=== PATIENT | female | born 1970 | race Caucasian/White ===

== ENCOUNTER 2018-09-04 00:32 | Inpatient (IN) | payer OTHER ==
[2018-09-04] MEDS ORDERED: Dexamethasone 10 MG/ML VIAL ONE (01:10)
[2018-09-04 01:37] LABS: ALT (SGPT) 50 U/L (8-55); AST (SGOT) 32 U/L (5-34); Albumin 4.3 g/dL (3.5-5.0); Alkaline Phosphatase 61 U/L (40-150); Anion Gap 16 mmol/L (10-20); BUN (Urea Nitrogen) 12 mg/dL (7.0-18.7); Bilirubin, Total 0.5 mg/dL (0.2-1.2); Calc. Creatinine Clearance 0 mL/min (70-130); Calcium 9.2 mg/dL (7.8-10.44); Carbon Dioxide 19 mmol/L (22-29); Chloride 111 mmol/L (98-107); Estimated GFR-MDRD Greater than 90; Globulin 2.3 g/dL (2.4-3.5); Glucose 94 mg/dL (70-105); Potassium 4.4 mmol/L (3.5-5.1); Protein, Total 6.6 g/dL (6.0-8.3); Sodium 142 mmol/L (136-145)
[2018-09-04 01:46] LABS: PTT 29.4 SEC (22.9-36.1); Prothrombin Time 13.4 SEC (12.0-14.7)
[2018-09-04 01:55] LABS: Band 4 % (5-11); Eosinophils 2 % (0-10); Hemoglobin 15.3 g/dL (12.0-16.0); Lymphocytes 19 % (21-51); MDiff Complete? YES; Mean Corpuscular HGB CONC 32.2 g/dL (32.0-36.0); Mean Corpuscular Hemoglobin 28.5 pg (27.0-31.0); Mean Corpuscular Volume 88.6 fL (78.0-98.0); Mean Platelet Volume 7.5 fL (7.4-10.4); Monocytes 4 % (0-10); Neutrophil 71 % (42-75); Platelet Clumps SLIGHT; Platelet Count 156 thou/uL (130-400); Platelet Morphology Comment Appears Adequate; RBC Distribution Width 12.5 % (11.5-14.5); Red Blood Cell (RBC) Count 5.38 mill/uL (4.20-5.40); White Blood Cell (WBC) Count 7.5 thou/uL (4.8-10.8)
--- NOTE | 2018-09-04 02:12 | PDOC.FPRHP ---
- History of Present Illness Chief Complaint: headache History of Present Illness: This is a 48 year old female who presents as transfer from [facility] ED ( [place], [place]) with a 7 day history of severe headache, not resolved with OTC medications. She states the headache started last and has gotten progressively worse. Constant pain. Described pain as dull and throbbing located at the back of her head. She states when she bends her head forward the pain radiates to the front of her head. Patient endorses associated N/V that began on Friday of this week. She has thrown up once today. Headache, dizziness , N/V worsened with positional changes, particularly when going from lying to seated position. Denies any changes in her gait, no vision changes. 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 She received chemotherapy, radiation, and surgery to left breast. Patient denies associated fever, chills, weakness, abdominal pain, stool changes, cough, or congestion. Patient sees Dr. Hines for her breast cancer in the [place]- last saw him about [address] brain at outside facility showed two lesions, one which was appx 4x4 cm located in cerebellar region with associated edema and mild hydrocephalus. Another lesion noted in right temporal lesion which is appx 1 cm in size. ED Course: Decadron - Allergies/Adverse Reactions Allergies Allergy/AdvReac Type Severity Reaction Status Date / Time No Known Drug Allergies Allergy Unverified 09/04/18 02:31 - History PMH: stage IV breast cancer s/p chemo and radiation PSH: hysterectomy, mastectomy of L breast, tonsillectomy FH: Social: drinks socially 2x a month, denies drug use. Denies tobacco use. Lives at home w/ family. 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 - Review of Systems General: reports: weight/appetite/sleep changes, fatigue, other (headache, back of head). denies: fever/chills Eyes: denies: eye pain, vision changes Respiratory: denies: cough, congestion, shortness of breath Cardiovascular: denies: chest pain, palpitation, edema Gastrointestinal: reports: nausea, vomiting. denies: diarrhea, constipation, abdominal pain Genitourinary: denies: dysuria Skin: denies: rashes, lesions Neurological: reports: other (dizziness with standing). denies: weakness - Vital signs BP: 151/98, Pulse: 87, Resp: 17, Temp: 97.7 (Oral), Pain: 0, O2 sat: 100 on Room Air, Time: 09/04/2018 00:33. Weight: 86kg BP: 150/99, Pulse: 80, Resp: 17, O2 sat: 98 on Room Air, Time: 09/04/2018 02:00. - Physical Exam Constitutional: NAD, awake, alert and oriented, well developed HEENT: normocephalic and atraumatic, PERRLA, EOMI, grossly normal vision, grossly normal hearing, MMM Neck: supple, FROM Heart: RRR, normal S1/S2, no murmurs/rubs/gallops Lungs: CTAB, no respiratory distress, good air movement, no rales/rhonchi, no wheezing, no retractions Abdomen: soft, non-tender, bowel sounds present, no masses/distention Musculoskeletal: normal structure, normal tone, ROM grossly normal Neurological: CN II-XII intact, normal sensation -Neurological: left sided dysmetria, heel to horn positive on left Skin: no rash/lesions, good turgor, capillary refill <2 seconds Psychiatric: normal mood and affect FMR H&P: Results - Labs Result Diagrams: 09/04/18 01:09 09/04/18 01:09 Lab results: WBC 7.5 thou/uL (4.8-10.8) 09/04/18 01:09 Hgb 15.3 g/dL (12.0-16.0) 09/04/18 01:09 Hct 47.7 % (36.0-47.0) H 09/04/18 01:09 MCV 88.6 fL (78.0-98.0) 09/04/18 01:09 Plt Count 156 thou/uL (130-400) 09/04/18 01:09 Band Neuts % (Manual) 4 % (5-11) L 09/04/18 01:09 Sodium 142 mmol/L (136-145) 09/04/18 01:09 Potassium 4.4 mmol/L (3.5-5.1) 09/04/18 01:09 Chloride 111 mmol/L (98-107) H 09/04/18 01:09 Carbon Dioxide 19 mmol/L (22-29) L 09/04/18 01:09 BUN 12 mg/dL (7.0-18.7) 09/04/18 01:09 Creatinine 0.65 mg/dL (0.6-1.1) 09/04/18 01:09 Glucose 94 mg/dL (70-105) 09/04/18 01:09 Calcium 9.2 mg/dL (7.8-10.44) 09/04/18 01:09 Total Bilirubin 0.5 mg/dL (0.2-1.2) 09/04/18 01:09 AST 32 U/L (5-34) 09/04/18 01:09 ALT 50 U/L (8-55) 09/04/18 01:09 Alkaline Phosphatase 61 U/L (40-150) 09/04/18 01:09 Serum Total Protein 6.6 g/dL (6.0-8.3) 09/04/18 01:09 Albumin 4.3 g/dL (3.5-5.0) 09/04/18 01:09 FMR H&P: A/P - Problem List (1) Breast cancer Current Visit: Yes Status: Acute (2) Brain metastasis Current Visit: Yes Status: Acute Code(s): C79.31 - SECONDARY MALIGNANT NEOPLASM OF BRAIN (3) Hypertension Current Visit: Yes Status: Acute Code(s): I10 - ESSENTIAL (PRIMARY) HYPERTENSION - Plan Stage IV breast cancer w/ mets - CT brain at outside facility showed two lesions, one which was appx 4x4 cm located in cerebellar region with associated edema and mild hydrocephalus. Another lesion noted in right temporal lesion which is appx 1 cm in size. - s/p decadron - Neurosurg consulted from the ER, appreciate recs, no intervention at this time - Plan for MRI on 09/04, pt NPO for any possible intervention - Tylenol/motrin PRN for headache - Consider onc consult in AM HTN - hydralazine/labetalol PRN - Will continue to monitor VS Dispo: admit to medical/inpatient, > 2 midnights Diet: NPO DVT ppx: SCDs PCP: Farhan Code: DNAR FMR H&P: Upper Level - Pertinent history 48 yo WF PMH Breast cancer s/p mastectomy with lymph node dissection, chemo, and radiation. Presents with 1 wk hx of worsening headache that began last . Reports worsening dizziness and poor coordination during this time. Reports dizziness is associated with nausea and vomiting. States symptoms improve when lying supine. Seen at outside ER in [place] where CT showed left cerebellar mass. Sent to [facility] for further evaluation and treatment. PCP is Farhan. ER: Labs, CT-Brain, decadron, NS 1L, Neurosurgery consult. - Pertinent findings Vitals: Unremarkable GEN: NAD CV: RRR Pulm: CTA-B Neuro: CN2-12 intact, normal upper and lower extremity strength and sensation. Cerebellar testing shows dysmetria on the left worse in upper extremity. Labs: unremarkable CT-Brain: Reviewed by me from outside facility. Large lesion in left cerebellum. no mass effect noted. - Plan Date/Time: 09/04/180 I, Garret Tapia MD, have evaluated this patient and agree with findings/plan as outlined by digital intern resident. Pertinent changes/additions are listed here. 1. Cerebellar Mass: Neurosurgery consulted. S/P decadron. MRI scheduled in the morning. F/U recs. PRN antiemetics and analgesics provided. Unsure if primary tumor vs metastatic lesion at this time. 2. Hx Breast CA Diet: NPO pending MRI results PPx: SCD until evaluated MRI complete and further neurosurgery recs. Recommend lovenox if no surgery to be performed. CODE: DNAR, discussed with patient and her . Dispo: Obs, Medical, <2 midnight. Addendum - Attending - Attending Attestation Date/Time: 09/04/18 1083 I personally evaluated the patient and discussed the management with Dr. Esposito/ [place]. I agree with the History, Examination, Assessment and Plan documented above with any addition or exceptions noted below. Patient with history of stage IV inflammatory breast ca here with headache and history consistent with intracranial mass. CT imaging confirmed this and she was transferred here. Will provide pain control, anti-emetics as needed, and continue Decadron. NSGY to see. MRI pending. Further inpatient mgmt per NSGY recs. Has outpatient Onc, will consult our team here if needed.
[2018-09-04] MEDS ORDERED: Acetaminophen 325 MG TAB PO PRN (02:19)
[2018-09-04] MEDS ORDERED: Ondansetron ODT 4 MG TAB PO PRN (02:19)
[2018-09-04] MEDS ORDERED: hydrALAZINE 20 MG/ML VIAL SLOW IVP PRN (02:26)
[2018-09-04] MEDS ORDERED: Sodium Chloride 0.9% (PF) 10 ML VIAL FS PRN (03:19)
[2018-09-04] MEDS: Lactated Ringer's 1,000 ML IV SCH ×2 (04:07→15:22)
--- NOTE | 2018-09-04 07:11 | PRG ---
DATE OF SERVICE: 09/04/2018 I personally interviewed and examined the patient, agreed with documentation of Krupa Stern PA-C, dated 09/04/2018. Briefly, Lily Irvin is a 48-year-old woman, who is 11 months out from breast cancer surgery with lymph node dissection. Three of the lymph nodes were obtained and they were negative. She is on five weeks of adjuvant therapy, which was stopped for side effect reasons. She has been healthy and free of known disease since. The tumor was felt to be inflammatory, but with triple-negative markers. The patient comes in with a 1-week history of headache, nausea, and vomiting. CT examination at an outside facility showed a hypodense lesion in the left cerebellar hemisphere causing mass effect on the 4th ventricle, but not a significant amount of hydrocephalus yet. MRI scans are pending. Examination is well documented and involved some dysmetria, especially on the left. I had a long discussion with Ms. Irvin and her in the room this morning. We are awaiting MRI results. If this appears to be a tumor, then I do not believe it is amenable to radiation or stereotactic radiosurgery due to the localized mass effect. In fact, I think it should be removed quickly. They seemed a little hesitant to remove it today, but we will talk again after the MRI scan if today is not an option for them and we will keep her on 4 q.i.d. of Decadron with a proton-pump inhibitor and potentially personnel scheduler her for early next week. I would not wait more than a week or so to remove this tumor. Job ID: [id number] MTDD
--- NOTE | 2018-09-04 08:19 | CON ---
DATE OF CONSULTATION: HISTORY OF PRESENT ILLNESS: Ms. Irvin is a 48-year-old female, who has a history of inflammatory breast cancer, she had mastectomy and has finished chemotherapy in May of this year. She went to the emergency department this evening in [place], [place] for 5 days of headache/occipital pain, worse positionally and with any type of intrathecal pressure. She has had 2 days of nausea and vomiting, otherwise, she was neurologically intact at the emergency department in [place]. A CT of her head was done showing a 4 cm cystic lesion and was transferred for MRI. Neurosurgery has been consulted for evaluation of this mass. The patient is neurologically intact. She is moving all 4 extremities well. She has good strength bilaterally. No changes in sensation. No hearing or visual changes. No fevers or chills. She has been unable to eat or drink much since Friday, presents here with nausea and vomiting. She has mild dysmetria on the left compared to the right with [id number] test. Memory, attention is normal. REVIEW OF SYSTEMS: A 10-point review of systems has been completed and is negative other than stated in the above HPI. PAST MEDICAL HISTORY: Breast cancer, inflammatory; treated with chemotherapy and radiation and surgery. PAST SURGICAL HISTORY: Hysterectomy, mastectomy, and tonsillectomy. SOCIAL HISTORY: The patient drinks socially twice a month. Denies drug use. She has no smoking history. Lives at home with her family. 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 ALLERGIES: NO KNOWN DRUG ALLERGIES. HOME MEDICATIONS: 1. Promethazine. 2. Diazepam. 3. Hydrocodone/acetaminophen. PHYSICAL EXAMINATION: VITAL SIGNS: Blood pressure 151/98, heart rate 87, respirations 17, temperature 97.7, O2 saturation 100% on room air. CONSTITUTIONAL: The patient is alert and oriented. She is afebrile and nontoxic appearing. HEENT: Head is normocephalic, atraumatic. Pupils are equal, round, and reactive to light. Extraocular movements are intact. Hearing is intact. Moist mucous membranes. Tenderness in the posterior occipital region. NECK: Range of motion is normal. CARDIAC: Regular rate and rhythm. RESPIRATIONS: Normal work of breathing on room air. EXTREMITIES: Upper and lower extremities have normal strength and sensation, 5/5 bilateral in the deltoids, biceps, triceps, foam rubber fabricator strength, hip flexion, hip extension, dorsiflexion, and plantar flexion. NEUROLOGIC: The patient is alert and oriented x3. Speech is spontaneous and fluent. Normal fund of knowledge. Short-term and long-term memory intact. There are no focal motor or sensory deficits noted. Cranial nerves 2 through 12 are intact. There is no pronator drift. Mild dysmetria left compared to right. IMAGING STUDIES: [facility] head done at [facility] show an approximately 4 cm cystic lesion within the left cerebellar hemisphere with a small mural nodule at the posterior aspect of this lesion. There is mild adjacent edema, prominent effacement of the adjacent 4th ventricle, early/mild hydrocephalus is difficult to exclude. Appearance is nonspecific and differential is considered including hemangioblastoma, pilocytic astrocytoma, and metastatic disease. MRI with and without contrast is recommended. There is a possible additional 1 cm lesion in her right posterior temporal lobe. ASSESSMENT AND PLAN: Ms. Irvin is a 48-year-old female with history of inflammatory breast cancer, recently treated with chemotherapy. There is a possibility of this being a metastatic disease that has metastasized to her brain. We will recommend Decadron while she is in the emergency department. Medicine is going to admit and make her comfortable and we will get the MRI with and without contrast of her brain this morning. We will review imaging and create a further plan at that point. Job ID: [id number] MTDD
--- NOTE | 2018-09-04 08:52 | MRI ---
MRI brain with and without IV contrast. Multiplanar and multisequential imaging of brain obtained according to protocol. INDICATIONS: Follow-up brain mass seen on CT. COMPARISON: Comparison made to CT performed 09/03/2018 from outside institution. FINDINGS: Again noted is a predominantly cystic appearing mass with peripheral enhancement in the left cerebell um measuring 4 cm diameter. This has surrounding vasogenic edema produces mass effect on the fourth ventricle with mild midline shift of the fourth ventricle. Lateral ventricles and third ventricle are upper normal size suggesting early obstructive hydrocephalus. There is a mural nodule along the posterior border of this lesion as described on yesterday's CT. A second ring-enhancing lesion is seen on MRI. There is a septated ring-enhancing mass posterior righ t temporal lobe adjacent to the dural surface measuring 1.2 cm. No other lesions identified. Intracranial internal carotid arteries, proximal cerebral arteries, and basilar arteries show normal flow voids. Dural venous sinuses appear patent. Visualized paranasal sinuses and mastoids appear clear. Orbits appear unremarkable. Bony calvarium and soft tissues of the scalp appear unremarkable. IMPRESSION: There are 2 ring-enhancing lesions seen on MRI. The largest in the left cerebellum is producing mass effect with compression of the fourth ventricle as described above. The presence of 2 lesions in a patient with prior history of stage IV breast cancer highly favors met astatic disease.
[2018-09-04] MEDS ORDERED: Enoxaparin Sodium 40 MG/0.4 ML SYRINGE SC SCH (09:00)
[2018-09-04] MEDS ORDERED: Pantoprazole 40 MG VIAL IVP SCH (09:00)
[2018-09-04] MEDS: Dexamethasone 4 MG TAB PO SCH ×3 (11:12→18:32)
[2018-09-04] MEDS: Ondansetron PF 4 MG/2 ML Vial IVP PRN ×2 (11:15→18:03)
[2018-09-04] MEDS ORDERED: Gadobenate Dimeglumine 529 MG/1 ML (20ML VIAL) ONE (11:55)
[2018-09-04] MEDS ORDERED: Promethazine 25 MG TAB PO PRN (12:00)
[2018-09-04] MEDS ORDERED: Diazepam 2 MG TAB PO SCH (12:00)
[2018-09-04] MEDS ORDERED: HYDROcodone/Acetaminophen 10/325 mg Tablet PO PRN (12:00)
[2018-09-04] MEDS ORDERED: Diazepam 2 MG TAB PO PRN (12:17)
[2018-09-04] MEDS ORDERED: Promethazine HCl 25 MG/ML VIAL IM PRN (15:03)
[2018-09-04] MEDS ORDERED: Ondansetron PF 4 MG/2 ML Vial ONE (16:51)
[2018-09-04] MEDS ORDERED: ePHEDrine 50 MG/ML VIAL ONE (16:51)
[2018-09-04] MEDS ORDERED: Dexamethasone 20 MG/5 ML VIAL ONE (16:51)
[2018-09-04] MEDS ORDERED: Rocuronium Bromide 10 MG/ML (10ML VIAL) ONE (16:51)
[2018-09-04] MEDS ORDERED: PHENYLEPHRINE-NS 100 MCG/ML 10 ML SYRINGE ONE (16:51)
[2018-09-04] MEDS ORDERED: Vecuronium 10 MG VIAL ONE (16:51)
[2018-09-04] MEDS ORDERED: PROPOFOL 200 MG/20 ML VIAL ONE (16:51)
[2018-09-04] MEDS ORDERED: Lidocaine 1% PF 5 ML VIAL ONE (16:51)
[2018-09-04] MEDS ORDERED: Midazolam HCl 2 mg/2 ml Vial ONE (19:00)
[2018-09-04] MEDS ORDERED: Lidocaine 0.5%/Epinephrine 1:200,000 50 ml Vial ONE (19:09)
[2018-09-04] MEDS ORDERED: Thrombin 5000 UNITS/5 ML VIAL ONE ×2 (19:09→23:45)
[2018-09-04] MEDS ORDERED: Bacitracin Zinc Ointment 30 gm TUBE ONE (19:09)
[2018-09-04] MEDS ORDERED: Sodium Chloride 0.9% 10 ML ONE ×2 (19:10→22:17)
[2018-09-04] MEDS ORDERED: Fentanyl 100 MCG/2 ML VIAL ONE ×2 (19:22→20:08)
[2018-09-04] MEDS ORDERED: Mannitol 12.5 GM/50 ML ONE (19:30)
[2018-09-04] MEDS ORDERED: Phenylephrine HCL 10 MG/ML VIAL ONE (20:27)
[2018-09-04] MEDS ORDERED: Sodium Chloride 0.9% 20 ML ONE (22:30)
[2018-09-05] MEDS ORDERED: Vecuronium 10 MG VIAL ONE (00:33)
[2018-09-05] MEDS ORDERED: SUGAMMADEX SODIUM 200 MG/2 ML VIAL ONE (01:58)
[2018-09-05] MEDS ORDERED: SUGAMMADEX SODIUM 500 MG/5 ML VIAL ONE (01:58)
[2018-09-05] MEDS ORDERED: HYDROcodone/Acetaminophen 10/325 mg Tablet PO PRN ×2 (02:15)
[2018-09-05] MEDS ORDERED: diphenhydrAMINE 50 MG CAP PO PRN (02:17)
[2018-09-05] MEDS ORDERED: diphenhydrAMINE 50 MG/ML VIAL IVP PRN (02:17)
[2018-09-05] MEDS ORDERED: Docusate 100 MG CAP PO PRN (02:17)
[2018-09-05] MEDS ORDERED: Mag-Al 1200 mg/1200 mg/30 ML UDCUP PO PRN (02:17)
[2018-09-05] MEDS ORDERED: Promethazine HCl 25 MG/ML VIAL SLOW IVP PRN (02:34)
[2018-09-05] MEDS ORDERED: Promethazine HCl 25 MG/ML VIAL IM PRN (02:34)
[2018-09-05] MEDS ORDERED: Ondansetron HCl/PF 4 MG/2 ML Vial IVP PRN (02:34)
[2018-09-05] MEDS ORDERED: Fentanyl 100 MCG/2 ML VIAL ONE (03:06)
[2018-09-05] MEDS: Lactated Ringer's 1,000 ML IV SCH (04:27)
[2018-09-05] MEDS: Dexamethasone 4 MG TAB PO SCH ×2 (04:27→07:43)
[2018-09-05] MEDS: Sodium Chloride 0.9% 1,000 ML IV SCH ×2 (04:28→17:33)
[2018-09-05] MEDS: CEFAZOLIN 2 GM in Premix Bag 1 BAG IVPB SCH ×3 (04:30→18:23)
[2018-09-05] MEDS: Labetalol HCl 100 MG/20 ML VIAL SLOW IVP PRN ×2 (04:36→11:36)
[2018-09-05] MEDS: Morphine 4 MG/ML VIAL SLOW IVP PRN ×5 (04:39→22:01)
[2018-09-05] MEDS: hydrALAZINE 20 MG/ML VIAL SLOW IVP PRN ×2 (05:50→10:38)
--- NOTE | 2018-09-05 06:16 | PDOC.FM ---
- Subjective Subjective: Mrs. Irvin is sitting up in bed awake. Moaning and complains of head pain. Reports it feels like her eyes are "stuck together". Oriented to person and time. Continues to say "what are you doing to me". - Objective Vital Signs & Weight: Vital Signs (12 hours) Pulse BP 09/05/18 05:50 86 165/84 H 09/05/18 04:36 86 163/84 H Weight Weight 88.269 kg Most Recent Monitor Data Heart Rate from ECG 104 NIBP 118/75 NIBP BP-Mean 89 Respiration from ECG 16 SpO2 100 Result Diagrams: 09/05/18 06:35 09/05/18 06:35 Phys Exam - Physical Examination moaning of pain, responds to questions appropriately. Says random phrases at times. incision clean and dry Respiratory: no wheezing, no rhonchi, clear to auscultation bilateral Cardiovascular: RRR (sinus tachy), no significant murmur Gastrointestinal: soft, non-tender, no distention, positive bowel sounds Musculoskeletal: no edema Deviation from normal: A&Ox2 Skin: normal turgor Dx/Plan (1) Brain metastasis Code(s): C79.31 - SECONDARY MALIGNANT NEOPLASM OF BRAIN Status: Acute (2) Breast cancer Status: Acute (3) Hypertension Code(s): I10 - ESSENTIAL (PRIMARY) HYPERTENSION Status: Acute - Plan Plan: Stage IV breast cancer w/ brain metastasis, POD #1 s/p resection - CT brain at outside facility showed two lesions, one which was appx 4x4 cm located in cerebellar region with associated edema and mild hydrocephalus. Another lesion noted in right temporal lesion which is appx 1 cm in size. - MRI here with 2 ring enhancing lesions. 4 cm L cerebellar w/mass effect. R temporal lesion 1.2 cm - op report from surgery overnight pending - Neurosurgery consulted and managing post op course, appreciate recommendations HTN - hydralazine/labetalol PRN - Will continue to monitor VS Diet: Regular DVT ppx: SCDs PCP: Farhan Code: DNAR Addendum - Attending - Attending Attestation Date/Time: 09/05/18 6974 I personally evaluated the patient and discussed the management with Dr. Calderon. I agree with the History, Examination, Assessment and Plan documented above with any addition or exceptions noted below. Patient had extensive operation overnight to debulk the cerebellar brain tumor with NSGY. She is currently in the CCU. Vitals stable. She complains of pain but is overall alert and oriented. Further mgmt per NSGY recs. Pathology pending. Onc consult on Friday as they would be unlikely to offer much until path result obtained. Monitor neuro function closely.
[2018-09-05] MEDS ORDERED: Bacteriostatic Normal Saline 30 ML VIAL ONE (06:32)
[2018-09-05 06:48] LABS: #Lymphocytes 0.8 thou/uL (1.20-3.40); #Monocytes 0.9 thou/uL (0.11-0.59); #Neutrophils 9.2 thou/uL (1.40-6.50); %Basophils 0.1 % (0.0-1.0); %Eosinophils 0.1 % (0.0-10.0); %Lymphocytes 7.1 % (21.0-51.0); %Monocytes 8.5 % (0.0-10.0); %Neutrophils 84.2 % (42.0-75.0); Hemoglobin 14.1 g/dL (12.0-16.0); Mean Corpuscular HGB CONC 34.3 g/dL (32.0-36.0); Mean Corpuscular Hemoglobin 29.3 pg (27.0-31.0); Mean Corpuscular Volume 85.5 fL (78.0-98.0); Mean Platelet Volume 6.2 fL (7.4-10.4); Platelet Count 259 thou/uL (130-400); RBC Distribution Width 12.5 % (11.5-14.5); Red Blood Cell (RBC) Count 4.82 mill/uL (4.20-5.40)
[2018-09-05 07:10] LABS: Anion Gap 14 mmol/L (10-20); BUN (Urea Nitrogen) 12 mg/dL (7.0-18.7); Calc. Creatinine Clearance 135 mL/min (70-130); Carbon Dioxide 20 mmol/L (22-29); Chloride 113 mmol/L (98-107); Estimated GFR-MDRD 88; Glucose 135 mg/dL (70-105); Potassium 3.8 mmol/L (3.5-5.1); Sodium 143 mmol/L (136-145)
[2018-09-05] MEDS: Acetaminophen 1,000 MG in Premix Bag 1 BAG IVPB SCH ×3 (07:32→19:25)
[2018-09-05] MEDS: Dexamethasone 4 mg/ml Vial SLOW IVP SCH ×3 (07:32→19:25)
--- NOTE | 2018-09-05 07:56 | RAD ---
CHEST 1 VIEW: Date: 09/05/18 INDICATION: Line placement. IMPRESSION: There is a left subclavian central venous catheter projecting in the region of the right atrium. Ther e are low lung volumes. Heart size and pulmonary vasculature within normal limits. No pleural effusio n or pneumothorax evident. POS: BH
[2018-09-05] MEDS: Letrozole 2.5 MG TAB PO SCH ×2 (10:41→10:42)
[2018-09-05] MEDS ORDERED: Labetalol HCl 100 MG/20 ML VIAL SLOW IVP PRN (13:00)
[2018-09-05] MEDS: Ondansetron PF 4 MG/2 ML Vial IVP PRN (16:29)
--- NOTE | 2018-09-05 21:23 | PRG ---
DATE OF SERVICE: 09/05/2018 I met with Ms. Irvin in the ICU room. She complains of expected postsurgical headache. She is neurologically intact. She has a ventriculostomy drain that is patent and draining low amounts of clear spinal fluid. We will continue to maintain her presence in the ICU over the course of the weekend and re-evaluate transfer to the floor once we feel comfortable removing the ventriculostomy. Job ID: [id number]
[2018-09-06] MEDS: Acetaminophen 1,000 MG in Premix Bag 1 BAG IVPB SCH (02:16)
[2018-09-06] MEDS: Dexamethasone 4 mg/ml Vial SLOW IVP SCH ×4 (02:16→20:01)
[2018-09-06] MEDS: CEFAZOLIN 2 GM in Premix Bag 1 BAG IVPB SCH ×3 (02:16→18:14)
[2018-09-06 05:31] LABS: #Lymphocytes 0.8 thou/uL (1.20-3.40); #Monocytes 0.6 thou/uL (0.11-0.59); #Neutrophils 8.7 thou/uL (1.40-6.50); %Basophils 0.1 % (0.0-1.0); %Eosinophils 0.2 % (0.0-10.0); %Lymphocytes 7.5 % (21.0-51.0); %Monocytes 6.1 % (0.0-10.0); %Neutrophils 86.2 % (42.0-75.0); Hemoglobin 11.6 g/dL (12.0-16.0); Mean Corpuscular HGB CONC 33.4 g/dL (32.0-36.0); Mean Corpuscular Hemoglobin 29.4 pg (27.0-31.0); Mean Platelet Volume 6.2 fL (7.4-10.4); Platelet Count 222 thou/uL (130-400); RBC Distribution Width 12.6 % (11.5-14.5); Red Blood Cell (RBC) Count 3.94 mill/uL (4.20-5.40); White Blood Cell (WBC) Count 10.1 thou/uL (4.8-10.8)
[2018-09-06 05:49] LABS: Anion Gap 9 mmol/L (10-20); BUN (Urea Nitrogen) 10 mg/dL (7.0-18.7); Calc. Creatinine Clearance 157 mL/min (70-130); Calcium 8.2 mg/dL (7.8-10.44); Carbon Dioxide 24 mmol/L (22-29); Chloride 113 mmol/L (98-107); Estimated GFR-MDRD Greater than 90; Glucose 125 mg/dL (70-105); Potassium 3.7 mmol/L (3.5-5.1); Sodium 142 mmol/L (136-145)
[2018-09-06] MEDS ORDERED: Acetaminophen/Codeine 30-300mg Tablet PO PRN (06:02)
--- NOTE | 2018-09-06 06:05 | PDOC.FM ---
- Subjective Subjective: Ms Irvin is awake sitting up in bed. Her headache has greatly improved compared to yesterday. A&Ox3. Denies changes in vision, CP, SOB. - Objective MAR Reviewed: Yes Vital Signs & Weight: Vital Signs (12 hours) Temp Pulse Ox 09/06/18 04:00 98.6 F 09/05/18 20:00 100 09/05/18 19:00 98.8 F Weight Weight 88.269 kg Most Recent Monitor Data Heart Rate from ECG 89 NIBP 129/78 NIBP BP-Mean 95 Respiration from ECG 15 SpO2 97 I&O: 09/04/18 09/05/18 09/06/18 06:59 06:59 06:59 Intake Total 246 1912 Output Total 295 2086 Balance -49 -174 Result Diagrams: 09/06/18 04:37 09/06/18 04:37 Phys Exam - Physical Examination Constitutional: NAD incision clean, dry Respiratory: no wheezing, clear to auscultation bilateral Cardiovascular: RRR, no significant murmur Gastrointestinal: soft, non-tender, positive bowel sounds Musculoskeletal: no edema Neurological: moves all 4 limbs Psychiatric: normal affect, A&O x 3 Skin: normal turgor Dx/Plan (1) Brain metastasis Code(s): C79.31 - SECONDARY MALIGNANT NEOPLASM OF BRAIN Status: Acute (2) Breast cancer Status: Acute (3) Hypertension Code(s): I10 - ESSENTIAL (PRIMARY) HYPERTENSION Status: Acute - Plan Plan: Stage IV breast cancer w/ brain metastasis, POD #2 s/p resection - CT brain at outside facility showed two lesions - MRI here with 2 ring enhancing lesions. 4 cm L cerebellar w/mass effect. R temporal lesion 1.2 cm - op report from surgery pending - vital signs stable, 2L urine output in past 24 hrs. - Neurosurgery consulted and managing post op course, appreciate recommendations HTN - hydralazine/labetalol PRN - Will continue to monitor VS Diet: Regular DVT ppx: SCDs PCP: Farhan Code: DNAR Addendum - Attending - Attending Attestation Date/Time: 09/06/18 [id number] I personally evaluated the patient and discussed the management with Dr. Calderon. I agree with the History, Examination, Assessment and Plan documented above with any addition or exceptions noted below. Patient POD1 from craniectomy and mass removal. Pain improved. Continue post op per NSGY recs. BP controlled. Path pending. Onc consult likely tomorrow.
[2018-09-06] MEDS: Morphine 4 MG/ML VIAL SLOW IVP PRN (06:22)
[2018-09-06] MEDS: Sodium Chloride 0.9% 1,000 ML IV SCH ×2 (06:30→19:59)
--- NOTE | 2018-09-06 07:06 | PRG ---
DATE OF SERVICE: 09/06/2018 Ms. Irvin, this morning, is doing well. Her pain is well controlled. She has only had one dose of morphine of this entire shift and otherwise schedule Tylenol. CSF drainage has been scant as her ICPs have not risen above 20, but EVD is patent and pulsatile when open. Incisions are dry and well approximated, no drainage noted. Overall, I believe she is doing quite well. Job ID: [id number]
[2018-09-06] MEDS ORDERED: HYDROcodone/Acetaminophen 10/325 mg Tablet PO PRN ×2 (08:00)
[2018-09-06] MEDS: Acetaminophen/Codeine 30-300mg Tablet PO PRN ×2 (08:48→17:08)
--- NOTE | 2018-09-06 09:38 | PRG ---
DATE OF SERVICE: 09/06/2018 Ms. Irvin is now 2 days status post suboccipital craniectomy with resection of presumed metastatic breast neoplasm. She has had an uneventful course over the last 48 hours. She is resting comfortably in her bed. She does have a ventriculostomy in place, which is patent, but draining very little and only when her pressures are to exceed to certain amount. She does have anticipated postsurgical headache. Her incision remains clean and dry. We will continue to monitor her in the ICU with ongoing drainage as needed today and defer to Dr. Youssef's service for appropriate removal of her drain. Job ID: [id number]
--- NOTE | 2018-09-06 17:26 | CON ---
DATE OF CONSULTATION: 09/06/2018 HISTORY OF PRESENT ILLNESS: Ms. Irvin is a 48-year-old female, who underwent a craniotomy. There is no operative note in the computer yet. Apparently, she had a suboccipital craniectomy and metastatic breast lesion resected. She has a ventricular drain in place. PAST MEDICAL HISTORY: Remarkable for, 1. Breast cancer, which was inflammatory breast cancer. 2. Status post hysterectomy. 3. Status post mastectomy. 4. Status post tonsillectomy. SOCIAL HISTORY: She is a nonsmoker and nondrug user. Drinks occasionally. ALLERGIES: SHE HAS NO REPORTED DRUG ALLERGIES. MEDICATIONS: Prior to admission, she was on, 1. Phenergan. 2. Valium. 3. Hydrocodone. According to her that she was having progressive headache that she thought were migraine. The headache became progressively more severe, which led to a CAT scan, which led to magnetic resonance imaging and subsequently surgery. She had a 4 x 4 cm lesion in her cerebellum and hydrocephalus associated with that as well as a right temporal lesion, which is 1 cm in size. FAMILY HISTORY: Negative for lung disease in early age. REVIEW OF SYSTEMS: 10 point review of systems completed, remarkable only for headache. Her says she is doing much better than she has been. PHYSICAL EXAMINATION: VITAL SIGNS: Blood pressure 125/77 by cuff, heart rate 74, and respiratory rate is 18. Reviewing and intake and output, her drain only drained 1 mL between yesterday and today. GENERAL: She has ventricular drain in place. HEENT: Pupils react. NECK: Supple. LUNGS: Clear. HEART: Regular rhythm. S1 and S2 normal. ABDOMEN: Soft and nontender. EXTREMITIES: Without edema or asymmetry. IMPRESSION AND PLAN: Status post craniotomy with resection of metastatic breast cancer, now ventricular drain, clinically stable. There are no acute issues with her in the critical care unit at this time. Neurosurgery plans to re-evaluate for removal of her ventricular drain later today. This is a 70 minute consult, with greater than 50% of time spent on unit coordinating care. Job ID: [id number] [facility]
[2018-09-07] MEDS: Acetaminophen/Codeine 30-300mg Tablet PO PRN ×3 (00:05→18:45)
[2018-09-07] MEDS: CEFAZOLIN 2 GM in Premix Bag 1 BAG IVPB SCH ×2 (02:35→10:12)
[2018-09-07] MEDS: Dexamethasone 4 mg/ml Vial SLOW IVP SCH ×2 (02:36→08:40)
[2018-09-07] MEDS: Sodium Chloride 0.9% 1,000 ML IV SCH (04:02)
[2018-09-07 04:31] LABS: #Lymphocytes 0.8 thou/uL (1.20-3.40); #Monocytes 0.4 thou/uL (0.11-0.59); %Basophils 0.1 % (0.0-1.0); %Eosinophils 0.2 % (0.0-10.0); %Lymphocytes 9.9 % (21.0-51.0); %Monocytes 4.7 % (0.0-10.0); %Neutrophils 85.2 % (42.0-75.0); Hemoglobin 11.3 g/dL (12.0-16.0); Mean Corpuscular HGB CONC 32.7 g/dL (32.0-36.0); Mean Corpuscular Hemoglobin 28.9 pg (27.0-31.0); Mean Corpuscular Volume 88.4 fL (78.0-98.0); Mean Platelet Volume 6.1 fL (7.4-10.4); Platelet Count 222 thou/uL (130-400); RBC Distribution Width 12.5 % (11.5-14.5); Red Blood Cell (RBC) Count 3.89 mill/uL (4.20-5.40); White Blood Cell (WBC) Count 8.2 thou/uL (4.8-10.8)
[2018-09-07 04:51] LABS: Anion Gap 10 mmol/L (10-20); BUN (Urea Nitrogen) 10 mg/dL (7.0-18.7); Calc. Creatinine Clearance 157 mL/min (70-130); Calcium 8.5 mg/dL (7.8-10.44); Carbon Dioxide 25 mmol/L (22-29); Chloride 113 mmol/L (98-107); Estimated GFR-MDRD Greater than 90; Glucose 131 mg/dL (70-105); Potassium 3.6 mmol/L (3.5-5.1); Sodium 144 mmol/L (136-145)
--- NOTE | 2018-09-07 06:21 | PDOC.FM ---
- Subjective Subjective: Ms. Irvin is doing well. Reports headache is much improved, now 05/07. Drain out this am by neurosurg. No other complaints. Wants coffee and donuts for breakfast. - Objective Vital Signs & Weight: Vital Signs (12 hours) Temp Pulse Ox 09/07/18 04:00 98.2 F 09/07/18 00:00 98.2 F 09/06/18 20:00 98.3 F 99 Weight Weight 88.269 kg Most Recent Monitor Data Heart Rate from ECG 69 NIBP 130/89 NIBP BP-Mean 102 Respiration from ECG 17 SpO2 100 I&O: 09/05/18 09/06/18 09/07/18 06:59 06:59 06:59 Intake Total 246 1912 1461 Output Total 295 5944 5288 Balance -44 -428 -8324 Result Diagrams: 09/07/18 04:10 09/07/18 04:10 Phys Exam - Physical Examination Constitutional: NAD Respiratory: no wheezing, clear to auscultation bilateral Cardiovascular: RRR, no significant murmur Gastrointestinal: soft, non-tender, positive bowel sounds Musculoskeletal: no edema Psychiatric: normal affect Skin: normal turgor Dx/Plan (1) Brain metastasis Code(s): C79.31 - SECONDARY MALIGNANT NEOPLASM OF BRAIN Status: Acute (2) Breast cancer Status: Acute (3) Hypertension Code(s): I10 - ESSENTIAL (PRIMARY) HYPERTENSION Status: Acute - Plan Plan: Likely breast cancer w/ brain metastasis, post op resection - CT brain at outside facility showed two lesions - MRI here with 2 ring enhancing lesions. 4 cm L cerebellar w/mass effect. R temporal lesion 1.2 cm - op report from surgery pending, s/p suboccipital craniotomy w/ resection of neoplasm. Drain removed. - vital signs stable, 3200mL urine output in past 24 hrs. - Neurosurgery consulted and managing post op course, appreciate recommendations HTN - Will continue to monitor VS Diet: Regular DVT ppx: SCDs PCP: Farhan Code: DNAR Dispo: likely could transfer to floor today Addendum - Attending - Attending Attestation Date/Time: 09/07/18 4567 I personally evaluated the patient and discussed the management with Dr. Beltran I agree with the History, Examination, Assessment and Plan documented above with any addition or exceptions noted below. POD #2 patient alert responsive up at side of bed, BP improved with pain rx, advance per Neurosurgery. Consult local Oncology, note established prior Oncology provider [facility] .
[2018-09-07 06:25] VITALS: BMI 31.3
--- NOTE | 2018-09-07 06:48 | PRG ---
DATE OF SERVICE: 09/07/2018 Ms. Irvin is 2 days out from the end of her craniotomy for tumor removal. We finished the operation at 2 a.m. on Friday morning. Early Friday, she had some confusion and headache. Confusion from the anesthesia and operative intervention went away quickly. The headache remained through Friday, but was better on Friday. She reports that she stood up yesterday and did not feel terribly off-balance. Her mean ICPs have been normal the entire weekend. The drain is not needed to be open. Remained stable. Her neurological examination is better than expected. There is mild if any dysmetria over the left upper extremity I cannot appreciate in the left lower extremity. There might be some end gaze nystagmus to the left, but it is mild. The plan is to remove the EVD today and move her from the ICU to floor care. When she is safe for activities of daily living, she can be discharged. Ms. Irvin' oncologist is at [facility] and typically she would receive radiation to the brain and then adjuvant chemotherapy. She will need to heal her suboccipital incision completely before that radiation is delivered. Radiation to the operative site will be delivered as well as stereotactic radiosurgery to the occipital lesion. Consult could be placed for our local oncologists and Radiation Oncology group or she can follow up at [facility], but she will need an appointment expeditiously. It may be more convenient for her to have her radiation and radiosurgery here. From a Neurosurgical perspective, she is doing quite well. I am pleased with her progress. Job ID: [id number] MTDD
--- NOTE | 2018-09-07 07:25 | PRG ---
DATE OF SERVICE: 09/05/2018 Ms. Irvin is postop day #1, following posterior suboccipital craniotomy for what is presumed to be a cerebellar metastasis with Dr. Youssef yesterday evening. She also had an EVD placed intraoperatively in the case that obstructive hydrocephalus were to occur from an edema state in the posterior fossa. She is in some moderate pain at bedside, but otherwise is awake, alert, and interactive. There were concerns about her EVD not draining, but it has started to in the last 30 minutes since prior to my arrival at bedside. She did have a significant amount of CSF lost in surgery, so it is likely that she just did not have enough CSF reserve to drain into the EVD. For now, she looks well. We will continue to follow along. Job ID: [id number]
[2018-09-07] MEDS ORDERED: Dexamethasone 4 MG TAB ONE (08:39)
[2018-09-07] MEDS: Dexamethasone 4 MG TAB PO SCH ×3 (08:41→17:03)
[2018-09-07] MEDS ORDERED: Acetaminophen/Codeine 30-300mg Tablet ONE (08:44)
--- NOTE | 2018-09-07 10:05 | PRG ---
DATE OF SERVICE: 09/07/2018 SUBJECTIVE: Ms. Irvin did well overnight. She is awake and alert. She has no distress. OBJECTIVE: VITAL SIGNS: She is afebrile. Heart rate is in the 90s, blood pressure is 136/98, respiratory rate is 19. LUNGS: Clear. HEART: Regular rhythm. ABDOMEN: Soft. EXTREMITIES: Without edema. LABORATORY DATA: White count 8.2, hemoglobin 11.3, platelets 222. Sodium 144, potassium 3.6, chloride 113, bicarb 25, BUN , creatinine 0.61. IMPRESSION: Metastatic inflammatory breast carcinoma, status post craniotomy for metastatic disease. She clinically looks great. She could be transferred out of the Critical Care Unit. Job ID: [id number]
--- NOTE | 2018-09-07 10:12 | OP ---
DATE OF PROCEDURE: 09/04/2018 DATE OF SURGERY: Started 09/04/2018, finished 09/05/2018. SERVICE ORDER DISPATCHER CHIEF: Krupa Stern PA-C PREOPERATIVE INDICATION: Make diagnosis, treat hydrocephalus, prevent neurological deterioration. PREOPERATIVE DIAGNOSIS: Left cerebellar lesion, likely metastatic, with pressure on the fourth ventricle and developing hydrocephalus. POSTOPERATIVE DIAGNOSE: Left cerebellar lesion, likely metastatic, with pressure on the fourth ventricle and developing hydrocephalus. OPERATIVE PROCEDURE: Right frontal silvia hole and placement of the external ventricular drain, suboccipital craniectomy for resection of left cerebellar tumor, operating microscope. PREOPERATIVE MEDICATIONS: Ancef 2 g IV. DRAIN NUMBER: 1. DRAIN TYPE: External ventricular. DESCRIPTION OF PROCEDURE: The patient was brought to the operating room. General endotracheal anesthesia was induced. While the patient was on transport cart and under general anesthesia, hair was removed from the right side of the scalp and the scalp was sterilely prepped and draped. We made a curvilinear incision anterior to the coronal suture in the midpupillary line. A self-retaining retractor was placed. A high-speed drill and a perforating bit were used to place a silvia hole in the frontal bone. We waxed the edges of the silvia hole and coagulated the dura. The dura was incised in a cruciate fashion. We gently coagulated the danny. The ventriculostomy catheter was advanced into the frontal horn of the right lateral ventricle. This was tunneled posteriorly through a separate stab incision and connected to a CSF drainage contraption. Incision was closed in anatomical layers. We applied a sterile dressing. We then attached Cabrales pin and header set up operator to the patient's head and transferred her into the prone position on the operating table with the chest and hips supported by gel-filled chest rolls. Hair was removed from the occipital area with electric clippers. We planned an incision from above the inion to the spinous process of C2. Under a planned incision, we infused local anesthetic. The skin was sterilely prepped and draped, and we opened with a 10-blade knife. We controlled bleeding with bipolar and monopolar cautery. We used monopolar cautery to dissect through subcutaneous tissues to the ligamentum nuchae. We incised in the midline and reflected the suboccipital musculature off the occipital bone, the arch of C1 and the superior portion of C2. A self-retaining retractor was placed. We placed 4 silvia holes in the posterior fossa and dissected the dura from the undersurface of the bone with a [place]orage 3 dissector. We then removed the significant portion of suboccipital bone in a piecemeal fashion. We carried our bony removal up to the transverse sinus bilaterally. We removed a little bit more bone on the left side than the right. We then opened the dura in a Y-shaped fashion with the 2 arms of the Y extending over the cerebellar hemispheres. We tacked the dura open. We irrigated with bacitracin irrigation. We then brought the operative microscope into the field. Under microscopic magnification and using microsurgical techniques, we entered the superior portion of the left cerebellar hemisphere. At a depth of about 2 cm, we encountered a grossly abnormal tissue. Once we were inside the cystic lesion, white proteinaceous fluid emanated. The alba of the lesion immediately fell in on themselves. We developed the plane between normal and abnormal tissue starting laterally and superiorly and progressing inferiorly deep and medially, and after very careful microdissection of the operating microscope, we thought we had achieved gross total resection. We irrigated copiously with bacitracin irrigation. We lined the tumor resection cavity with Surgicel. We brought a bovine pericardial patch into the field, and with a running 4-0 Prolene, we closed the dura. The operative microscope was taken out of the field. We irrigated copiously with bacitracin irrigation. Our dural closure was reinforced with DuraSeal tissue sealant. We closed the suboccipital musculature in anatomical layers. We closed the skin in layers and we applied a sterile dressing. These were 2 clean cases with no contamination. Job ID: [id number]
[2018-09-07] MEDS: Senokot 8.6 MG TAB PO PRN ×2 (10:17→21:15)
[2018-09-07] MEDS: hydrALAZINE 20 MG/ML VIAL SLOW IVP PRN (18:48)
[2018-09-08] MEDS: Acetaminophen/Codeine 30-300mg Tablet PO PRN (00:39)
[2018-09-08] MEDS: Dexamethasone 4 MG TAB PO SCH ×3 (00:39→11:57)
[2018-09-08] MEDS: hydrALAZINE 20 MG/ML VIAL SLOW IVP PRN (00:39)
[2018-09-08 06:47] LABS: #Lymphocytes 0.8 thou/uL (1.20-3.40); #Monocytes 0.3 thou/uL (0.11-0.59); %Eosinophils 0.4 % (0.0-10.0); %Lymphocytes 11.4 % (21.0-51.0); %Monocytes 4.2 % (0.0-10.0); Hemoglobin 12.6 g/dL (12.0-16.0); Mean Corpuscular Hemoglobin 28.8 pg (27.0-31.0); Mean Corpuscular Volume 87.3 fL (78.0-98.0); Mean Platelet Volume 6.1 fL (7.4-10.4); Platelet Count 278 thou/uL (130-400); RBC Distribution Width 12.5 % (11.5-14.5); Red Blood Cell (RBC) Count 4.39 mill/uL (4.20-5.40); White Blood Cell (WBC) Count 7.1 thou/uL (4.8-10.8)
--- NOTE | 2018-09-08 07:00 | PDOC.FM ---
- Subjective Subjective: Ms. Irvin is doing very well. Ate a full breakfast. Has been ambulating without difficulty and will get a shower today. Oncology, Dr. Maier has been consulted this morning to discuss radiation options with patient. - Objective Vital Signs & Weight: Vital Signs (12 hours) Temp Pulse Resp BP BP Pulse Ox 09/08/18 04:11 98 F 83 14 132/80 95 09/08/18 00:39 83 158/100 H 09/08/18 00:12 98.1 F 83 14 158/100 H 95 09/07/18 20:31 97.8 F 86 14 149/92 H 95 09/07/18 20:00 96 09/07/18 19:49 98 F 85 16 152/86 H 96 Weight Weight 93.4 kg Most Recent Monitor Data Heart Rate from ECG 81 NIBP 137/84 NIBP BP-Mean 101 Respiration from ECG 14 SpO2 100 I&O: 09/06/18 09/07/18 09/08/18 06:59 06:59 06:59 Intake Total 1911 2050 950 Output Total 2085 4468 660 Balance -174 -1304 290 Result Diagrams: 09/08/18 06:35 09/08/18 06:35 Phys Exam - Physical Examination Constitutional: NAD Respiratory: no wheezing, clear to auscultation bilateral Cardiovascular: RRR, no significant murmur Gastrointestinal: soft, non-tender, positive bowel sounds Musculoskeletal: no edema Neurological: non-focal (CN intact, normal finger to nose) Psychiatric: normal affect Skin: normal turgor Dx/Plan (1) Brain metastasis Code(s): C79.31 - SECONDARY MALIGNANT NEOPLASM OF BRAIN Status: Acute (2) Breast cancer Status: Acute (3) Hypertension Code(s): I10 - ESSENTIAL (PRIMARY) HYPERTENSION Status: Acute - Plan Plan: Breast cancer w/ brain metastasis, s/p craniotomy w/ resection - CT brain at outside facility showed two lesions - MRI here with 2 ring enhancing lesions. 4 cm L cerebellar w/mass effect. R temporal lesion 1.2 cm - op report from surgery pending, s/p suboccipital craniotomy w/ resection of neoplasm. Drain removed. - vital signs stable - Neurosurgery consulted and managing post op course, appreciate recommendations. HTN - Will continue to monitor VS Diet: Regular DVT ppx: SCDs PCP: Farhan Code: DNAR Dispo: Pending oncology consult today, could likely discharge later today. Addendum - Attending - Attending Attestation Date/Time: 09/08/18 1401 I personally evaluated the patient and discussed the management with Dr. Calderon I agree with the History, Examination, Assessment and Plan documented above with any addition or exceptions noted below.Patient continues to do well post operatively spouse at bedside her BP better earlier today patient seen by radiation oncology and will f/u with [facility] as scheduled will f/u BP check with PCP and Neurosurgery post discharge.
[2018-09-08 07:05] LABS: Anion Gap 11 mmol/L (10-20); BUN (Urea Nitrogen) 13 mg/dL (7.0-18.7); Calc. Creatinine Clearance 181 mL/min (70-130); Calcium 9.1 mg/dL (7.8-10.44); Carbon Dioxide 25 mmol/L (22-29); Chloride 111 mmol/L (98-107); Estimated GFR-MDRD Greater than 90; Glucose 125 mg/dL (70-105); Potassium 3.7 mmol/L (3.5-5.1); Sodium 143 mmol/L (136-145)
--- NOTE | 2018-09-08 07:06 | PRG ---
DATE OF SERVICE: 09/08/2018 I saw Lily Irvin in our hospital room this morning. She is 3 days out from a suboccipital craniectomy and tumor resection as well as EVD placement. The EVD is already out and she is doing well. She moved from the ICU to the floor care. Her blood pressure has been a little bit up. She got out of bed with physical therapy yesterday and felt like her left side was more coordinated than she thought it would be. Her balance and trunk control are quite good. I do not find any new cranial neuropathies or any new dysmetria or nystagmus today that was not there yesterday. Slowly, she is improving. Pathology is pending. Ms. Irvin needs radiation to the surgery bed and stereotactic radiosurgery for the remaining metastasis. She has an appointment with her oncologist in [facility] on Friday, but we will have our radiation oncology group visit with her while she is here and before discharge. If she is safe for activities of daily living, she can take a shower today and go home. Job ID: [id number]
--- NOTE | 2018-09-08 12:13 | CON ---
DATE OF CONSULTATION: 09/08/2018 REASON FOR CONSULTATION: Ms. Irvin is a 48-year-old female, who has been diagnosed with brain metastasis, likely from her breast cancer. HISTORY OF PRESENT ILLNESS: Ms. Irvin states that in 12/2016 she was diagnosed with an inflammatory breast cancer of the left breast. She started chemotherapy in 03/2017 at [facility] in [place]. She underwent chemotherapy followed by left mastectomy and then had radiation therapy to the chest wall and regional lymph nodes, which was given in a b.i.d. fashion. She states that she had 22 days of treatment. This was subsequently followed by Xeloda, which she tolerated poorly , and therefore, the Xeloda was discontinued early. She mainly developed problem with hand and foot syndrome, particularly on the feet. Her tumor was basically triple negative, although she states that it was 2% estrogen receptor positive. She did try letrozole, although she had difficulty with aches and pains, and this was subsequently discontinued also. About a week and a half ago, she began developing some headaches. This worsened and she subsequently developed vomiting about one week ago and also noticed that her coordination was off. She saw a chiropractor , who recommended that she have a medical evaluation. On this past , she saw Dr. Freeman, her family physician, who ordered an MRI of the brain, which was going to be done on Friday. However, on evening, she went to the emergency room because she could not keep anything down, and a CT scan of the head was performed, which showed a large cystic-appearing mass in the left cerebellum, which was causing some early obstruction of the 4th ventricle and some early hydrocephalus. There was question of a 2nd right parietal mass. She was admitted to the hospital here for workup with MRI and evaluation by Neurosurgery. An MRI was subsequently performed, which showed a 4-cm rim enhancing, cystic-appearing mass in the left cerebellum , which was causing again displacement of the 4th ventricle and some early hydrocephalus. There was a 1.2-cm rim-enhancing mass in the posterior right temporal lobe. She was seen by Dr. Youssef on 09/04/2018, underwent placement of a ventricular drain as well as a suboccipital craniotomy and resection of the left cerebellar tumor. A gross total resection was felt to have been accomplished. Pathology from that is currently pending. She has had removal of the drain. Presently, she is feeling much improved. She is able to stand and walk and feels that her coordination is fairly good. She is having no vomiting and/or headaches at the present time. She voices no other complaints. She denies any other areas of pain and denies any shortness of breath or recent weight loss. PAST MEDICAL HISTORY: 1. Inflammatory breast cancer as mentioned above. I do not have any records from [facility], where she has had all the treatment. 2. Status post hysterectomy. 3. Status post tonsillectomy. 4. She denies other medical or surgical problems. MEDICATIONS: 1. Dexamethasone. 2. Pantoprazole. 3. Tylenol No. 3 p.r.n. 4. Phenergan p.r.n. 5. Zofran p.r.n. ALLERGIES: NO KNOWN MEDICAL ALLERGIES. SOCIAL HISTORY: She lives with her and family in [place], [place]. She drinks an alcoholic beverage about 2 times per month. She has no tobacco or cigarette use. 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 She is working on her master's degree. FAMILY HISTORY: Her mother is still living at age 65 with diabetes, hypertension, and alcoholism. Her father is still living at age 67 and recently had a benign tumor removed from his pancreas. Her maternal grandmother from cancer in her early 60s, the type of which is unknown to her. There is no family history of breast or ovarian cancer. REVIEW OF SYSTEMS: A 12-point review of systems was performed. She has had some recent constipation. Review of systems is otherwise negative. PHYSICAL EXAMINATION: VITAL SIGNS: Height is 5 feet 8 inches, weight 205 pounds, blood pressure 132/ 80, pulse is 83, respirations were 14, temperature is 98, and O2 saturation is 95% on room air. CONSTITUTIONAL: She is alert and oriented and in no apparent distress. She is well-developed and well-nourished. Karnofsky performance status currently an 80 %, but expected to improve. EYES: Pupils equal, round, and reactive to light. Extraocular movements are intact. ENT: Oral cavity and oropharynx revealed no lesion or erythema. Palate elevates symmetrically. Gingiva is intact. NECK: Supple without preauricular, submandibular, cervical, or supraclavicular adenopathy. No thyromegaly. Larynx midline. LUNGS: Breathing nonlabored. Clear to auscultation and percussion. CARDIOVASCULAR: Heart, regular rate and rhythm without murmur. No lower extremity edema. BACK: No tenderness on fist percussion of her spine. LYMPHATIC: No axillary or inguinal adenopathy. ABDOMEN: Bowel sounds present. Soft, nontender, and nondistended without mass or hepatosplenomegaly. Liver percusses normal size. SKIN: Without rash or purpura. Her craniotomy incisions are healing well. There is no erythema or fluctuance noted. NEUROLOGIC: Cranial nerves 2 through 12 grossly intact. Motor strength is 5/5 in both upper and lower extremities in all muscle groups tested. Reflexes are normal and symmetrical. Cerebellar exam is intact on [id number] testing. Gait was not performed. LABORATORY DATA: Pathology is currently pending. CBC revealed a white blood cell count of 7100 with a hemoglobin of 12.6, hematocrit 38.3, and platelet count 278,000. Recent chemistry group showed a chloride of 111, creatinine is 0.56, and GFR was normal. Glucose was 125. Liver function tests on 09/04/2018 were normal. RADIOLOGIC DATA: MRI of the brain was personally reviewed. Again, she had 2 lesions. The largest was a 4-cm rim enhancing with cystic component in the left cerebellum, which is causing compression of the 4th ventricle and some early hydrocephalus. She also has a 1.2-cm rim-enhancing lesion in either the right posterior temporal lobe or perhaps even the right occipital lobe. No other lesion was identified. Chest x-ray showed no evidence of lung lesion. These were all personally reviewed. CT scan at admission was also personally reviewed. ASSESSMENT: Ms. Irvin is a 48-year-old female with history of inflammatory left breast cancer, who had all the treatment with [facility], who now presents with what is likely to be brain metastasis from her breast cancer. Pathology is currently pending, but I suspect that this is going to show metastatic breast cancer. She is status post gross total resection of the largest lesion in the cerebellum, but still has a 2nd lesion in the right posterior temporal/occipital lobe of the brain. Clinically, she does not have evidence of distant metastasis otherwise. PLAN: I had a long discussion with Ms. Irvin and her regarding her diagnosis, prognosis, prognostic factors, and treatment options. I explained the most likely diagnosis being that of metastatic breast cancer. I agree that her best option was a craniotomy and resection of the cerebellar tumor given the size and mass effect and symptoms that she was having. I explained to them that radiation would not have been a good option to treat this tumor at presentation. Now, she has had a gross total resection of the cerebellar tumor. Her symptoms are much improved. I explained that the other lesion in the brain in the right posterior temporal/occipital area of the brain has not been surgically removed or addressed. I did explain that she is at risk for recurrence in the resection cavity in the cerebellum in addition to having the 2nd lesion. My recommendation would be that we treat her with radiosurgery to the resection cavity as well as radiosurgery to the 2nd lesion in the brain. This would usually be performed when she is about 3-4 weeks out from her surgery to allow adequate healing from the surgery. The logistics of this procedure as well as the benefits and risks of radiation therapy were discussed. The simulation procedure and daily treatment procedure were discussed. I would anticipate that she would have 5 treatments to the resection cavity and likely 1 treatment to the lesion in the right posterior temporal/occipital area. Side effects would include, but not be limited to skin reaction, fatigue, lower blood counts, hair loss, headache, nausea, vomiting, and small risk of damage to her normal brain. We did discuss that she will be at risk for developing brain metastasis in the future. I explained that she would need to have an MRI at least every 3 months in the beginning, so that we can monitor her brain carefully. We did discuss whole-brain radiation therapy, which I did not recommend. I explained that whole-brain radiation therapy can reduce the risk of developing other lesions in the brain, but does not improve her overall survival , and there is concern of neurotoxicity with cognitive effects from whole-brain radiation therapy. Therefore, I think the best option after radiosurgery would be careful observation with frequent MRIs. Time was taken to answer all the questions regarding her treatment options. She is going to also have to decide whether she wants to do a treatment here at [facility] or whether she wants to return to [facility] for that treatment. We will keep in contact with her once she is an outpatient until she decides where she would like to have her treatment. She is scheduled for reconstructive surgery towards the end of September. I think that the radiosurgery can be accomplished, so that she could still potentially have her reconstructive surgery towards the end of September. However, I do think it would be a good idea that she undergo repeat systemic staging to evaluate for other areas of metastasis before she has her reconstructive surgery. I recommended that she talk to her medical oncologist at [facility] about this when she sees them as an outpatient. Thank you for this interesting consultation. Job ID: [id number] LATOYA
[2018-09-08 14:30] VITALS: BP 138/88; TEMP 98.6
== END 2018-09-08 14:20 | disposition home or self-care (01) | DRG 25 ==
LOC: ERS 00:32 → SURG A 02:20 → OBSVTOIN 12:50 → CCU 20:33 → SURG A 09-07 18:29
PROVIDERS: ADMIT Emergency Medicine; ATTEND Emergency Medicine
PROC: 00BC0ZZ Excision of Cerebellum, Open Approach (ICD-10-PCS; principal; 2018-09-04)
PROC: 009630Z Drainage of Cerebral Ventricle with Drainage Device, Percutaneous Approach (ICD-10-PCS; 2018-09-04)
DX: C79.31 Secondary malignant neoplasm of brain (principal); G93.6 Cerebral edema; G91.1 Obstructive hydrocephalus; Z66 Do not resuscitate; C50.919 Malignant neoplasm of unspecified site of unspecified female breast; I10 Essential (primary) hypertension; Z90.710 Acquired absence of both cervix and uterus; Z79.899 Other long term (current) drug therapy; Z90.12 Acquired absence of left breast and nipple
CPT/HCPCS: 36415; 70553; 71045; 80048; 80053; 85025; 85610; 85730; 87070; 87205; 88307; 88331; 88342; 93005; 96361; 96374; A9577; C9113; J0131; J0360; J0690; J1100; J1642; J2001; J2150; J2250; J2270; J2370; J2405; J2550; J2704; J3010; J3490; J8540; Q0162; Q0169